=== PATIENT | female | born 1980 | race Caucasian/White ===

== ENCOUNTER 2021-03-10 22:20 | Emergency (ER) | payer SELFPAY ==
[2021-03-10 22:34] LABS: BILIRUBIN,URINE NEGATIVE (NEGATIVE); CLARITY,URINE CLEAR; COLOR,URINE YELLOW; GLUCOSE, URINE (UA) NEGATIVE (NEGATIVE); KETONES,URINE NEGATIVE (NEGATIVE); LEUKOCYTE ESTERASE ,URINE TRACE (NEGATIVE); NITRITE,URINE NEGATIVE (NEGATIVE); PH,URINE 7.5 (5-9); PROTEIN,URINE NEGATIVE (NEGATIVE)
[2021-03-10 22:42] LABS: BACTERIA,URINE TRACE /HPF
[2021-03-10] MEDS ORDERED: NS IV 1000 ML 1,000 ML ONE (22:44)
[2021-03-10] MEDS ORDERED: ONDANSETRON 4 MG/2 ML (SDV) Z0FRAN ONE (22:44)
[2021-03-10] MEDS ORDERED: fentaNYL INJ 100 MCG/2 ML AMP ONE (22:44)
--- NOTE | 2021-03-10 22:44 | ED GU-Female ---
General Chief Complaint: - Urinary Stated Complaint: UTI;NAUSEA Nursing Triage Note: Pt states she was seen at urgent care on Sunday and was diagnosed with a uti. Pt was started on Macrobid but presents tonight with nausea/vomiting, lower abd pain, as well as mid back pain. Source: patient, family History of Present Illness Date Seen by Provider: Mar 10, 2021 Time Seen by Provider: 22:30 Initial Comments 40-year-old female presents with nausea and vomiting and abdominal pain. Symptoms have been present intermittently for the past 2 weeks. Seen in a local urgent care a few days ago and was diagnosed with a UTI and started on Macrobid. She states she felt better for 2 days and then the symptoms came back yesterday. No fever chills, or pain has not been migratory: upper abdomen, lower abdomen and each flank. She denies constipation or diarrhea. Her appetite has been diminished, but still eating and drinking. Denies any pain with urination, however she did start her menstrual period 4 days ago and does occasionally have painful. Allergies and Home Medications Allergies Coded Allergies: No Known Drug Allergies (Unverified , 03/10/21) Home Medications Famotidine 20 Mg Tablet, 20 MG PO BID Prescribed by: CHUCHO ELLIOTT on 03/10/212325 Ondansetron 4 Mg Tab.rapdis, 4 MG PO TID Prescribed by: CHUCHO ELLIOTT on 03/10/212325 Patient Home Medication List Home Medication List Reviewed: Yes Review of Systems Review of Systems Constitutional: No chills, No fever; malaise Respiratory: No cough, No short of breath Cardiovascular: No chest pain, No edema Gastrointestinal: abdominal pain; No constipation, No diarrhea; loss of appetite, nausea, vomiting Genitourinary: see HPI; denies dysuria, denies frequency; flank pain; denies hematuria Musculoskeletal: back pain; No joint pain Skin: No change in color, No rash Past [id number] Hx Patient Social History Tobacco Use?: No Use of E-Cig and/or Vaping dev: No Substance use?: No Alcohol Use?: No Pt feels they are or have been: No Physical Exam Vital Signs Vital Signs - First Documented 03/10/21 22:23 Temp 36.6 Pulse 74 Resp 18 B/P (MAP) 146/87 (106) Pulse Ox 99 O2 Delivery Room Air Capillary Refill : Less Than 3 Seconds Height, Weight, BMI Height: '" Weight: lbs. oz. kg; BMI Method: General Appearance: WD/WN, no apparent distress Cardiovascular: regular rate, rhythm, no edema, no JVD Respiratory: chest non-tender, lungs clear, normal breath sounds, no respiratory distress Gastrointestinal: normal bowel sounds, soft, no organomegaly, no pulsatile mass; No distended, No guarding, No rebound; tenderness (diffuse upper and lower abdomen); No hernia, No mass, No hepatomegaly, No spleenomegaly Back: normal inspection, CVA tenderness (L); No vertebral tenderness Progress/Results/Core Measures Suspected Sepsis SIRS Temperature: Pulse: 74 Respiratory Rate: 18 Laboratory Tests 03/10/21 22:45: White Blood Count 5.5 Blood Pressure 146 /87 Mean: 106 Laboratory Tests 03/10/21 22:45: Creatinine 0.79, Platelet Count 246, Total Bilirubin 0.3 Results/Orders Lab Results Laboratory Tests Test 03/10/21 22:25 03/10/21 22:45 Range/Units Urine Color YELLOW Urine Clarity CLEAR Urine pH 7.5 5-9 Urine Specific [place] 1.015 L 1.016-1.022 Urine Protein NEGATIVE NEGATIVE Urine Glucose (UA) NEGATIVE NEGATIVE Urine Ketones NEGATIVE NEGATIVE Urine Nitrite NEGATIVE NEGATIVE Urine Bilirubin NEGATIVE NEGATIVE Urine Urobilinogen 0.2 < = 1.0 MG/DL Urine Leukocyte Esterase TRACE H NEGATIVE Urine RBC (Auto) 3+ H NEGATIVE Urine RBC 10-25 H /HPF Urine WBC 2-5 /HPF Urine Squamous Epithelial Cells 2-5 /HPF Urine Crystals NONE /LPF Urine Bacteria TRACE /HPF Urine Casts NONE /LPF Urine Mucus SMALL H /LPF Urine Culture Indicated NO Urine Test NEGATIVE NEGATIVE White Blood Count 5.5 4.3-11.0 10^3/uL Red Blood Count 3.99 L 4.35-5.85 10^6/uL Hemoglobin 13.1 11.5-16.0 G/DL Hematocrit 37 35-52 % Mean Corpuscular Volume 93 80-99 FL Mean Corpuscular Hemoglobin 33 25-34 PG Mean Corpuscular Hemoglobin Concent 35 32-36 G/DL Red Cell Distribution Width 11.6 10.0-14.5 % Platelet Count 246 130-400 10^3/uL Mean Platelet Volume 10.7 H 7.4-10.4 FL Immature Granulocyte % (Auto) 0 % Neutrophils (%) (Auto) 39 L 42-75 % Lymphocytes (%) (Auto) 47 H 12-44 % Monocytes (%) (Auto) 8 0-12 % Eosinophils (%) (Auto) 5 0-10 % Basophils (%) (Auto) 1 0-10 % Neutrophils # (Auto) 2.2 1.8-7.8 X 10^3 Lymphocytes # (Auto) 2.6 1.0-4.0 X 10^3 Monocytes # (Auto) 0.5 0.0-1.0 X 10^3 Eosinophils # (Auto) 0.3 0.0-0.3 10^3/uL Basophils # (Auto) 0.1 0.0-0.1 10^3/uL Immature Granulocyte # (Auto) 0.0 0.0-0.1 10^3/uL Sodium Level 140 135-145 MMOL/L Potassium Level 3.9 3.6-5.0 MMOL/L Chloride Level 104 98-107 MMOL/L Carbon Dioxide Level 24 21-32 MMOL/L Anion Gap 12 5-14 MMOL/L Blood Urea Nitrogen 12 7-18 MG/DL Creatinine 0.79 0.60-1.30 MG/DL Estimat Glomerular Filtration Rate > 60 BUN/Creatinine Ratio 15 Glucose Level 92 70-105 MG/DL Calcium Level 9.6 8.5-10.1 MG/DL Corrected Calcium 9.6 8.5-10.1 MG/DL Total Bilirubin 0.3 0.1-1.0 MG/DL Aspartate Amino Transf (AST/SGOT) 16 5-34 U/L Alanine Aminotransferase (ALT/SGPT) 13 0-55 U/L Alkaline Phosphatase 57 40-136 U/L Total Protein 6.6 6.4-8.2 GM/DL Albumin 4.0 3.2-4.5 GM/DL Lipase 24 8-78 U/L My Orders Orders - ROCÍOSTCHUCHO BROWNE DO Ua Culture If Indicated (03/10/21 22:27) Ed Iv/Invasive Line Start (03/10/21 22:39) Cbc With Automated Diff (03/10/21 22:39) Comprehensive Metabolic Panel (03/10/21 22:39) Lipase (03/10/21 22:39) Ns Iv 1000 Ml (Sodium Chloride 0.9%) (03/10/21 22:45) Ondansetron Injection (Zofran Injectio (03/10/21 22:45) Fentanyl Inj (Sublimaze Injection) (03/10/21 22:45) Hcg,Qualitative Urine (03/10/21 22:42) Fentanyl Inj (Sublimaze Injection) (03/10/21 22:44) Ns Iv 1000 Ml (Sodium Chloride 0.9%) (03/10/21 22:44) Ondansetron Injection (Zofran Injectio (03/10/21 22:44) Abdomen (Kub) 1 View (03/10/21 23:03) Medications Given in ED Current Medications Medications Dose Ordered Sig/Gonsalo Route Start Time Stop Time Status Last Admin Dose Admin Fentanyl Citrate 50 mcg ONCE ONCE IVP 03/10/21 22:45 03/10/21 22:46 DC 03/10/21 22:47 50 MCG Ondansetron HCl 4 mg ONCE ONCE IVP 03/10/21 22:45 03/10/21 22:46 DC 03/10/21 22:47 4 MG Vital Signs/I&O 03/10/21 22:23 Temp 36.6 Pulse 74 Resp 18 B/P (MAP) 146/87 (106) Pulse Ox 99 O2 Delivery Room Air Capillary Refill : Less Than 3 Seconds Blood Pressure Mean: 106 Progress Note : Progress Note better after medication given. Review of normal labs and Abd x-rays w non- specific bgp. Patient states they had a lot of potatoes for dinner tonight and that may have contributed. Advised to keep a food diary as her symptoms have been inte rmittent. Normally has BM q 3 days, no change. Occasionally uses Miralax for relief. Advised a couple doses of milk of magnesia to see if she has a little relief. She also drinks a pot of coffee daily, advised she cut that in 1/2. Departure Impression Primary Impression: Abdominal pain Qualified Codes: R10.9 - Unspecified abdominal pain Additional Impression: Nausea & vomiting Qualified Codes: R11.2 - Nausea with vomiting, unspecified Disposition: 01 HOME, SELF-CARE Condition: Improved Departure-Patient Inst. Decision time for Depature: 23:24 Referrals: NO,LOCAL PHYSICIAN (PCP/Family) Primary Care Physician Patient Instructions: Nausea and Vomiting, Adult, Abdominal Pain, Adult ED Add. Discharge Instructions: You are advised to eat a clear liquid diet until your abdominal pain has improved, usually 2 to 3 days. If you are not improving or worse return to the nearest ER for further evaluation. All discharge instructions reviewed with patient and/or family. Voiced understanding. Scripts Ondansetron (Ondansetron Odt) 4 Mg Tab.rapdis 4 MG PO TID for Nausea, #12 TAB Prov: CHUCHO ELLIOTT DO 03/10/21 Famotidine (Pepcid) 20 Mg Tablet 20 MG PO BID, #30 TAB Prov: CHUCHO ELLIOTT DO 03/10/21 CHUCHO ELLIOTT DO Mar 10, 2021 22:44
[2021-03-10] MEDS ORDERED: ONDANSETRON 4 MG/2 ML (SDV) Z0FRAN IVP ONE (22:45)
[2021-03-10] MEDS ORDERED: NS IV 1000 ML 1,000 ML IV SCH (22:45)
[2021-03-10] MEDS ORDERED: fentaNYL INJ 100 MCG/2 ML AMP IVP ONE (22:45)
[2021-03-10 22:59] LABS: BASOPHILS % (AUTO) 1 % (0-10); EOSINOPHILS % (AUTO) 5 % (0-10); HEMATOCRIT 37 % (35-52); HEMOGLOBIN 13.1 G/DL (11.5-16.0); LYMPHOCYTES % (AUTO) 47 % (12-44); MEAN CORPUSCULAR HEMOGLOBIN 33 PG (25-34); MEAN CORPUSCULAR HGB CONC 35 G/DL (32-36); MEAN CORPUSCULAR VOLUME 93 FL (80-99); MEAN PLATELET VOLUME 10.7 FL (7.4-10.4); MONOCYTES % (AUTO) 8 % (0-12); NEUTROPHILS # (AUTO) 2.2 X 10^3 (1.8-7.8); NEUTROPHILS % (AUTO) 39 % (42-75); PLATELET COUNT 246 10^3/uL (130-400); WHITE BLOOD COUNT 5.5 10^3/uL (4.3-11.0)
[2021-03-10 23:00] LABS: BASOPHILS # (AUTO) 0.1 10^3/uL (0.0-0.1); EOSINOPHILS # (AUTO) 0.3 10^3/uL (0.0-0.3); LYMPHOCYTES # (AUTO) 2.6 X 10^3 (1.0-4.0); MONOCYTES # (AUTO) 0.5 X 10^3 (0.0-1.0)
[2021-03-10 23:11] LABS: LIPASE 24 U/L (8-78)
[2021-03-10 23:12] LABS: SODIUM 140 MMOL/L (135-145)
[2021-03-10 23:13] LABS: ALANINE AMINOTRANSFERASE 13 U/L (0-55); ALKALINE PHOSPHATASE 57 U/L (40-136); BILIRUBIN,TOTAL 0.3 MG/DL (0.1-1.0); BUN/CREATININE RATIO 15; CALCIUM 9.6 MG/DL (8.5-10.1); CARBON DIOXIDE 24 MMOL/L (21-32); CHLORIDE 104 MMOL/L (98-107); CREATININE SERUM 0.79 MG/DL (0.60-1.30); GFR ESTIMATED > 60; GLUCOSE 92 MG/DL (70-105); POTASSIUM 3.9 MMOL/L (3.6-5.0); TOTAL PROTEIN 6.6 GM/DL (6.4-8.2)
[2021-03-10] MEDS ORDERED: FAMO-119 PO (23:26)
[2021-03-10] MEDS ORDERED: ONDA4TAB11 PO (23:26)
[2021-03-10 23:40] VITALS: BP 127/60
--- NOTE | 2021-03-11 06:21 | Diagnostic Imaging Report ---
INDICATION: Diagnosed with urinary tract infection 3 days ago, abdominal pain. TECHNIQUE: 2 supine view of the abdomen 11:14 PM CORRELATION STUDY: None FINDINGS: Imaging of the abdomen demonstrates the bowel gas pattern to be unremarkable and without evidence for obstruction. No significant differential air-fluid levels. No evidence for free air. Likely phlebolith calcifications left pelvis. No pathologic intraabdominal calcifications. IMPRESSION: 1. Nonobstructed bowel gas pattern. Dictated by: Dictated on workstation # [id number]
== END 2021-03-10 23:40 | disposition home or self-care (01) ==
LOC: ER FS 22:22
DX: R11.2 Nausea with vomiting, unspecified (principal); R10.84 Generalized abdominal pain; Z87.442 Personal history of urinary calculi
CPT/HCPCS: 36415; 74018; 80053; 81000; 83690; 84703; 85025